=== PATIENT | female | born 1945 | race Caucasian/White ===

== ENCOUNTER 2023-06-19 19:43 | Emergency (ER) | payer MEDICARE, BC, SELFPAY ==
[2023-06-19] VITALS (14 sets, daily range): BP systolic 108–146; BP diastolic 52–88; PULSE 79–89; RESP 16–26; TEMP 37.1; O2SAT 90–98
--- NOTE | 2023-06-19 19:45 | DI.RAD.S_ITS ---
PROCEDURE: XR CHEST 1V INDICATIONS: trauma TECHNIQUE: One view of the chest was acquired. COMPARISON: [facility], CR, XR PELVIS 1-2V, 06/19/2023, 19:55. [facility], CT, CT FACIAL BONES WO CON, 06/19/2023, 19:47. [facility], CT, CT CERVICAL SPINE WO CON, 06/19/2023, 19:47. [facility], CT, CT HEAD/BRAIN WO CON, 06/19/2023, 19:47. FINDINGS: Surgical changes and devices: Right shoulder arthroplasty hardware is seen. Lungs and pleura: An incomplete inspiratory result is noted, causing a crowded appearance to the lung markings. No focal infiltrates are seen. No pneumothorax or significant pleural effusions are seen. Mediastinum: Mediastinal contours appear normal. Heart size is normal. Bones and chest wall: No suspicious bony lesions. Overlying soft tissues appear unremarkable. IMPRESSION: Low lung volumes, without a linus acute abnormality seen by plain film. If there is strong clinical concern for chest trauma in this patient, please consider a follow-up chest CT with IV contrast for further evaluation. Dictated by: Shekhar Edmondson M.D. on 06/19/2023 at 19:37 Approved by: Shekhar Edmondson M.D. on 06/19/2023 at 19:38
--- NOTE | 2023-06-19 19:45 | DI.RAD.S_ITS ---
PROCEDURE: XR PELVIS 1-2V INDICATIONS: trauma TECHNIQUE: 1 view(s) of the pelvis acquired. COMPARISON: , CR, XR CHEST 1V, 06/19/2023, 19:55. , CT, CT FACIAL BONES WO CON, 06/19/2023, 19:47. , CT, CT CERVICAL SPINE WO CON, 06/19/2023, 19:47. , CT, CT HEAD/BRAIN WO CON, 06/19/2023, 19:47. FINDINGS: Bones: No fractures or dislocations. No suspicious bony lesions. There is moderate superior joint space narrowing seen of both hips, with associated remodeling changes with subchondral sclerosis and osteophyte formation. Age-appropriate lower lumbar spine degenerative changes are noted. Soft tissues: Visualized bowel gas pattern is normal. No suspicious soft tissue calcifications. IMPRESSION: No displaced fractures can be seen on this single plain film study. If there is point tenderness (or other clinical suspicion for a fracture not seen on these images) then a dedicated CT could be considered for further evaluation, if clinically appropriate. Moderate bilateral hip degenerative change can be seen. Dictated by: Shekhar Edmondson M.D. on 06/19/2023 at 19:36 Approved by: Shekhar Edmondson M.D. on 06/19/2023 at 19:37
--- NOTE | 2023-06-19 19:45 | DI.CT.S_ITS ---
PROCEDURE: CT FACIAL BONES WO CON INDICATIONS: trauma TECHNIQUE: Noncontrast 2.5 mm thick axial images acquired from the mandible through the frontal sinuses, with coronal and sagittal reformatting. For radiation dose reduction, the following was used: automated exposure control, adjustment of mA and/or kV according to patient size. COMPARISON: [facility], CR, XR PELVIS 1-2V, 06/19/2023, 19:55. [facility], CR, XR CHEST 1V, 06/19/2023, 19:55. [facility], CT, CT CERVICAL SPINE WO CON, 06/19/2023, 19:47. [facility], CT, CT HEAD/BRAIN WO CON, 06/19/2023, 19:47. FINDINGS: Image quality: Excellent. Bones and teeth: Mildly displaced nasal bone fractures are seen. There is a left inferior orbital wall blowout fracture seen. There is herniation of fat inferiorly, with inferior deviation of the left inferior rectus muscle. The left maxillary sinus galdamez otherwise appear intact. No acute nasal septal fracture is seen. Visualized portions of the mandible demonstrate no fractures or subluxation. Zygomatic arches are intact. Pterygoid plates are intact. Visualized portions of the skull base and auditory canals are intact. Sinuses: There is blood seen within the left maxillary sinus. Soft tissues: Soft tissue swelling is seen. Several enlarged lymph nodes can be seen within the visualized neck, with the largest seen on the left at level 2A measuring 15 x 25 mm. Vascular: Visualized vascular structures appear normal in the absence of contrast. Bony vascular foramina and canals are intact. IMPRESSION: There is a left inferior orbital wall blowout fracture seen, with herniation of fat inferiorly, with inferior migration of the left inferior rectus muscle, which is highly concerning for muscular entrapment. Please correlate with eye examination. Associated blood is seen within the left maxillary sinus. Mildly displaced nasal bone fractures are seen. There is partial visualization of enlarged cervical lymph nodes. Dictated by: Shekhar Edmondson M.D. on 06/19/2023 at 19:46 Approved by: Shekhar Edmondson M.D. on 06/19/2023 at 19:49
--- NOTE | 2023-06-19 19:46 | DI.CT.S_ITS ---
PROCEDURE: CT HEAD/BRAIN WO CON INDICATIONS: Trauma TECHNIQUE: Noncontrast 4.5 mm thick angled axial sections acquired from the foramen magnum to the vertex, with coronal and sagittal reformats. For radiation dose reduction, the following was used: automated exposure control, adjustment of mA and/or kV according to patient size. COMPARISON: [facility], CR, XR PELVIS 1-2V, 06/19/2023, 19:55. [facility], CR, XR CHEST 1V, 06/19/2023, 19:55. [facility], CT, CT CERVICAL SPINE WO CON, 06/19/2023, 19:47. [facility], CT, CT FACIAL BONES WO CON, 06/19/2023, 19:47. FINDINGS: Image quality: Mild streak artifact can be seen through the skull base. CSF spaces: Basal cisterns are patent. No extra-axial fluid collections. The ventricles are symmetric in size and shape. Brain: No intracranial bleeds. A likely calcified meningioma can be seen posteriorly and on the left, as on series 2, image 16 measuring 1 cm. There is cerebral volume loss for age, with resultant ventricular and sulcal prominence. There are periventricular and deep white matter chronic small vessel ischemic changes. There is intracranial internal carotid artery atherosclerosis. Skull and face: Nasal bone fractures and left maxillary sinus fractures are partially seen. No calvarial fracture is identified. Sinuses: There is blood seen within the left maxillary sinus. No abnormal fluid is seen within the mastoid air cells. IMPRESSION: Nasal bone fractures and left maxillary sinus fractures partially seen. There is blood seen within the left maxillary sinus. No displaced calvarial fracture can be seen. No acute intracranial hemorrhage is seen. No acute intracranial process is seen. Likely calcified meningioma seen posteriorly and on the left, measuring 1 cm. Dictated by: Shekhar Edmondson M.D. on 06/19/2023 at 19:44 Approved by: Shekhar Edmondson M.D. on 06/19/2023 at 19:46
--- NOTE | 2023-06-19 19:46 | DI.CT.S_ITS ---
PROCEDURE: CT CERVICAL SPINE WO CON INDICATIONS: Trauma TECHNIQUE: Noncontrast 3 mm thick sections acquired from the skull base to the T4 level. Sagittal and coronal reformats were then constructed. For radiation dose reduction, the following was used: automated exposure control, adjustment of mA and/or kV according to patient size. COMPARISON: [facility], CR, XR PELVIS 1-2V, 06/19/2023, 19:55. [facility], CR, XR CHEST 1V, 06/19/2023, 19:55. [facility], CT, CT FACIAL BONES WO CON, 06/19/2023, 19:47. [facility], CT, CT HEAD/BRAIN WO CON, 06/19/2023, 19:47. FINDINGS: Image quality: This examination is somewhat limited by quantum mottle artifact. Bones: No fractures or dislocations. Visualized superior ribs are intact. Mild disc space narrowing is seen at the C5-C6 level. There is at least moderate disc space narrowing seen at C6-C7. Posteriorly projected endplate osteophytes are seen. Multiple levels of significant facet hypertrophy can be seen throughout the cervical spine. Soft tissues: Numerous abnormally enlarged lymph nodes can be seen within the neck. The largest is seen on the left at level 2A measuring 2.5 x 1.5 cm in greatest axial dimension. Prevertebral soft tissues are normal in thickness. No paravertebral hematomas. No apical pneumothoraces. IMPRESSION: Negative for fracture. Cervical spine degenerative changes are seen, which are worst at C6-C7. Abnormally enlarged cervical lymph nodes are seen. The appearance is highly concerning for lymphoma. Please correlate with known patient history. Note: Case discussed by telephone with Dr. Israel at 7:51 p.m. [place] time on June 19, 2023. Dictated by: Shekhar Edmondson M.D. on 06/19/2023 at 19:49 Approved by: Shekhar Edmondosn M.D. on 06/19/2023 at 19:52
--- NOTE | 2023-06-19 19:49 | ED.GENADULT ---
HPI - General Adult General Chief complaint: Fall Stated complaint: GLF, facal lac Time Seen by Provider: 06/19/23 19:45 History of Present Illness HPI narrative: 78-year-old female presents by air medical transport and is activated as a modified trauma given report of a fall from ground level with resultant head and face injuries. She had been in her normal state of health and denies any prodromal symptoms such as dizziness, weakness or lightheadedness. She was walking up a steep incline on gravel and fell forward striking her head and face and landing on her knees. She denies loss of consciousness nor nausea or vomiting. She has full recall of the event. She denies any chest pain or shortness of breath. She denies abdominal pain, nausea or vomiting. Her tetanus is current Related Data Home Medications Medication Instructions Recorded Confirmed aspirin 81 mg tablet 81 mg PO DAILY 06/20/23 06/20/23 cariprazine 3 mg capsule (Vraylar) 3 mg PO DAILY 06/20/23 06/20/23 divalproex 250 mg tablet,extended 250 mg PO DAILY 06/20/23 06/20/23 release 24 hr divalproex 500 mg tablet,extended 1,000 mg PO ONCE PM 06/20/23 06/20/23 release 24 hr levothyroxine 88 mcg tablet 88 mcg PO DAILY 06/20/23 06/20/23 propranolol 40 mg tablet 40 mg PO BID 06/20/23 06/20/23 rosuvastatin 20 mg tablet 40 mg PO ONCE PM 06/20/23 06/20/23 tirzepatide 10 mg/0.5 mL 10 mg SUBCUT 06/20/23 subcutaneous pen injector (Ricardo) tolterodine 4 mg capsule,extended 4 mg PO DAILY 06/20/23 06/20/23 release 24 hr venlafaxine 150 mg 150 mg PO DAILY 06/20/23 06/20/23 capsule,extended release 24 hr venlafaxine 75 mg capsule,extended 75 mg PO DAILY 06/20/23 06/20/23 release 24 hr Allergies Allergy/AdvReac Type Severity Reaction Status Date / Time No Known Drug Allergies Allergy Verified 06/19/23 19:46 Review of Systems Review of Systems Narrative: GENERAL: See HPI HEENT: See HPI RESPIRATORY: Denies dyspnea, cough, wheezing, hemoptysis, sputum. CARDIOVASCULAR: Denies chest pain, palpitations, orthopnea, edema, GASTROINTESTINAL: Denies nausea, vomiting, abdominal pain, diarrhea, constipation, melena. : Denies dysuria, frequency, incontinence, hematuria, urinary retention. MUSCULOSKELETAL: denies weakness, joint pain, or bony pain SKIN: Denies rash, skin lesions, or other NEUROLOGIC: Denies weakness, headache, numbness, change in speech, confusion, seizures, incoordination. PSYCHIATRIC: No concerning psychosocial issues. 12 point review of systems is negative except for those stated above Patient History Medical History Bipolar 1 disorder Depressed Diabetes High cholesterol Hypertension Hypothyroid Sleep apnea Social History Smoking Status: Unknown if ever smoked Exam Narrative Exam Narrative: GENERAL: [78] year old patient appears stated age. Well-developed patient, in mild distress. GCS 15 HEAD: Superficial abrasions of the forehead, largely above and about left eye with noted swelling of upper lid, no sign of depressed skull fracture EYES: Pupils equal round and reactive. No hyphema, patient reports binocular double vision with images [id number]. No scleral icterus. No injection or drainage. No obvious fluorescein uptake, patient very resistant to use of Oliver-Pen for intra-ocular pressures. Patient typically wears glasses but did not bring them. OS 20/50, OD 20/30, OU 20/30 ENT: 0.5 cm laceration over the bridge of the nose, minimal active bleeding, no obvious deformity, no nasal septal hematoma, dry clots bilateral nares. Throat without erythema, tonsillar hypertrophy or exudate. Airway patent. NECK: Trachea midline. Non tender CARDIOVASCULAR: Regular rate and rhythm without murmurs, gallops, or rubs. RESPIRATORY: Clear to auscultation. Breath sounds equal bilaterally. No wheezes, rales, or rhonchi. GASTROINTESTINAL: Abdomen soft, non-tender, nondistended. EXTREMITIES: No edema or joint tenderness. BACK: Nontender without deformity or crepitance. No flank tenderness. NEURO: AOx3. SKIN: No rash or erythema of visible areas Initial Vital Signs Initial Vital Signs: Vital Signs Temperature 98.8 F 06/19/23 19:18 Pulse Rate 79 06/19/23 19:18 Respiratory Rate 16 06/19/23 19:18 Blood Pressure 145/88 H 06/19/23 19:18 Pulse Oximetry 98 06/19/23 19:18 Oxygen Delivery Method Room Air 06/19/23 19:18 Procedures Laceration Repair Laceration 1: Site: face Size (cm): 0.5 Description: linear Depth: simple, single layer Local Anesthetic: lidocaine 1% Amount of anesthesia used (mL): 3 Pre-repair: wound explored and cleansed with chlorhexadine Skin layer closed with: nylon Skin layer suture size: 6-0 Number of sutures: 3 Technique: simple, interrupted Course Orders Ordered: ED Orders 06/20/23 04:07 CT chest abd pel w con Stat Sodium Chloride (Normal Saline 0.9%) 1,000 mls @ 150 mls/hr IV CONT MICHOACANO Last Admin: 06/19/23 20:43 Dose: Not Given Documented By: Dextrose ([email or web address]) 250 mls @ 999 mls/hr IV PRN PRN PRN Reason: Hypoglycemia Last Infusion: 06/19/23 21:10 Dose: 0 mls/hr Documented By: Admin: 06/19/23 20:39 Dose: 999 mls/hr Documented By: Dextrose ([email or web address]) 250 mls @ 999 mls/hr IV PRN PRN PRN Reason: Hypoglycemia Last Infusion: 06/19/23 22:54 Dose: 0 mls/hr Documented By: Admin: 06/19/23 22:28 Dose: 999 mls/hr Documented By: Discontinued Medications Diphtheria/Tetanus/Acell Pertussis (Tet,Diph,Pertuss(Acell),Vac/Pf 0.5 Ml Syringe) 0.5 ml IM .ONCE ONE Stop: 06/19/23 19:46 Last Admin: 06/19/23 19:57 Dose: Not Given Documented By: KB Fluorescein Sodium (Fluorescein 1 Mg Strip) 1 mg EYE-LEFT NOW ONE Stop: 06/19/23 22:21 Last Admin: 06/20/23 01:25 Dose: 1 mg Documented By: Hydromorphone HCl (Hydromorphone 0.5 Mg Inj) 0.5 mg IV NOW ONE Stop: 06/19/23 22:21 Last Admin: 06/19/23 22:27 Dose: 0.5 mg Documented By: Cefazolin Sodium 1 gm/ Sodium (Chloride) 100 mls @ 200 mls/hr IV NOW ONE Stop: 06/20/23 02:24 Last Infusion: 06/20/23 02:43 Dose: 0 mls/hr Documented By: Admin: 06/20/23 02:08 Dose: 200 mls/hr Documented By: LINDA Proparacaine HCl (Proparacaine 0.5% Ophth Lelia) 1 drops EYE-LEFT NOW ONE Stop: 06/19/23 22:21 Last Admin: 06/20/23 01:25 Dose: 1 drop Documented By: Consultations Consultation #1: call to Ophtho at [facility] Dr. Donald has reviewed history and physical exam findings including imaging. Not clearly in need of immediate intervention but happy to evaluate at [facility] Vital Signs Vital signs: Vital Signs - 8 hr 06/19/23 23:30 06/19/23 23:31 06/19/23 23:31 Pulse Rate 85 86 Respiratory Rate 19 18 Blood Pressure 111/52 L Pulse Oximetry 90 L 06/20/23 00:00 06/20/23 00:01 06/20/23 00:01 Pulse Rate 86 86 Respiratory Rate 21 Blood Pressure 100/57 L Pulse Oximetry 90 L 06/20/23 00:30 06/20/23 00:30 06/20/23 01:00 Pulse Rate 84 Respiratory Rate 22 Blood Pressure 105/57 L 111/59 L Pulse Oximetry 90 L 06/20/23 01:00 06/20/23 01:30 06/20/23 01:31 Pulse Rate 84 84 Respiratory Rate 17 Blood Pressure 112/57 L Pulse Oximetry 91 92 06/20/23 01:31 06/20/23 02:00 06/20/23 02:01 Pulse Rate 84 85 Respiratory Rate 14 21 Blood Pressure 126/78 Pulse Oximetry 93 93 06/20/23 02:01 06/20/23 02:30 06/20/23 02:31 Pulse Rate 85 83 Respiratory Rate 17 16 Blood Pressure 110/58 L Pulse Oximetry 93 98 06/20/23 02:31 06/20/23 03:09 06/20/23 03:11 Pulse Rate 82 85 82 Respiratory Rate 21 21 Blood Pressure Pulse Oximetry 98 98 95 06/20/23 03:11 06/20/23 03:30 06/20/23 03:31 Pulse Rate 84 83 Respiratory Rate 19 18 Blood Pressure 113/74 Pulse Oximetry 98 97 06/20/23 03:31 06/20/23 04:00 06/20/23 04:00 Pulse Rate 86 Respiratory Rate 18 Blood Pressure 125/67 114/60 Pulse Oximetry 97 06/20/23 04:30 06/20/23 04:30 06/20/23 05:04 Pulse Rate 86 86 Respiratory Rate 17 22 Blood Pressure 108/60 Pulse Oximetry 98 94 06/20/23 05:05 06/20/23 05:05 06/20/23 05:30 Pulse Rate 84 83 Respiratory Rate 18 22 Blood Pressure 113/61 Pulse Oximetry 95 91 06/20/23 06:00 06/20/23 06:00 06/20/23 06:30 Pulse Rate 82 83 Respiratory Rate 15 22 Blood Pressure 114/57 L Pulse Oximetry 92 90 L 06/20/23 07:00 06/20/23 07:00 Pulse Rate 82 Respiratory Rate 19 Blood Pressure 104/65 Pulse Oximetry 91 Medical Decision Making Lab Data 06/19/23 20:50 06/19/23 20:50 Labs: Lab Results 06/19/23 06/19/23 06/19/23 Range/Units 19:59 19:59 20:50 WBC 32.5 H* (4.5-11.0) X10^3/uL RBC 3.70 L (4.0-5.2) X10^6/uL Hgb 11.8 L (12.0-16.0) g/dL Hct 35.8 L (36-46) % MCV 96.9 (80-100) fL MCH 32.0 (26-34) PG MCHC 33.1 (30-36) % RDW 14.2 (11.6-14.8) % Plt Count 242 (150-400) X10^3/uL Neut % (Auto) Not Reportable Lymph % (Auto) Not Reportable [place] % (Auto) Not Reportable Eos % (Auto) Not Reportable Baso % (Auto) Not Reportable Lymph # (Auto) Not Reportable [place] # (Auto) Not Reportable Baso # (Auto) Not Reportable Total Counted 100 Seg Neutrophils % 26.0 L (38-70) % Lymphocytes % (Manual) 71.0 H (25-45) % Atypical Lymphs % 1.0 H ( - 0) % Monocytes % (Manual) 1.0 L (2-11) % Eosinophils % (Manual) 1.0 L (2-4) % Neutrophils # (Manual) 8450 H (0106-8003) /uL RBC Morphology Normal morphology PT (10.1-12.7) SECONDS INR (0.9-1.3) APTT (26-36) SECONDS Sodium (137-145) mmol/L Potassium (3.4-5.1) mmol/L Chloride (98-107) mmol/L Carbon Dioxide (22-32) mmol/L BUN (7-17) mg/dL Creatinine (0.52-1.04) mg/dL Estimated GFR (>60) mL/min BUN/Creatinine Ratio (6-22) Glucose (80-110) mg/dL Lactate (0.7-2.1) mmol/L Calcium (8.4-10.2) mg/dL Total Bilirubin (0.2-1.3) mg/dL AST (14-36) IU/L ALT (<35) IU/L Alkaline Phosphatase (38-126) U/L Total Creatine Kinase (30-135) U/L Troponin I (0.01-0.034) ng/mL Total Protein (6.3-8.2) g/dL Albumin (3.5-5.0) g/dL Globulin (1.7-4.1) g/dL Albumin/Globulin Ratio (1.0-2.8) Lipase (23-300) U/L Urine Color Yellow Urine Appearance Clear Urine pH 5.5 (4.5-8.0) Ur Specific [place] 1.020 (1.000-1.035) Urine Protein Negative (Negative) Urine Glucose (UA) Negative (Negative) g/dL Urine Ketones Negative (NEGATIVE) Urine Occult Blood Trace-intact (Negative) Urine Nitrate Negative (Negative) Urine Bilirubin Negative (NEGATIVE) Urine Urobilinogen 1.0 (0.2) E.U./dL Ur Leukocyte Esterase Negative (NEGATIVE) Urine RBC 0-1/hpf (0-5/HPF) Urine WBC 0-1/hpf (0-5/HPF) Ur Squamous Epith Cells 1-5 /hpf (0-5/HPF) Urine Bacteria None seen (None) Ur Culture Indicated? Cult not indicated U Opiates 300ng/mL cut Negative (Negative) Ur Oxycodone Screen Negative (Negative) Urine Methadone Screen Negative (Negative) Ur Barbiturates Screen Negative (Negative) U Tricyclic Antidepress Negative (Negative) Ur Phencyclidine Scrn Negative (Negative) Ur Amphetamines Screen Negative (Negative) U Methamphetamines Scrn Negative (Negative) Ur MDMA Scrn (Ecstasy) Negative (Negative) U Benzodiazepines Scrn Negative (Negative) Urine Cocaine Screen Negative (Negative) U Marijuana (THC) Screen Negative (Negative) Ethyl Alcohol ( - 10) mg/dL Blood Type Antibody Screen 06/19/23 06/19/23 06/19/23 Range/Units 20:50 20:50 20:50 WBC (4.5-11.0) X10^3/uL RBC (4.0-5.2) X10^6/uL Hgb (12.0-16.0) g/dL Hct (36-46) % MCV (80-100) fL MCH (26-34) PG MCHC (30-36) % RDW (11.6-14.8) % Plt Count (150-400) X10^3/uL Neut % (Auto) Lymph % (Auto) [place] % (Auto) Eos % (Auto) Baso % (Auto) Lymph # (Auto) [place] # (Auto) Baso # (Auto) Total Counted Seg Neutrophils % (38-70) % Lymphocytes % (Manual) (25-45) % Atypical Lymphs % ( - 0) % Monocytes % (Manual) (2-11) % Eosinophils % (Manual) (2-4) % Neutrophils # (Manual) (4757-6132) /uL RBC Morphology PT 11.6 (10.1-12.7) SECONDS INR 1.0 (0.9-1.3) APTT 26 (26-36) SECONDS Sodium 136 L (137-145) mmol/L Potassium 3.7 (3.4-5.1) mmol/L Chloride 103 (98-107) mmol/L Carbon Dioxide 26 (22-32) mmol/L BUN 17 (7-17) mg/dL Creatinine 0.56 (0.52-1.04) mg/dL Estimated GFR > 60 (>60) mL/min BUN/Creatinine Ratio 30.4 H (6-22) Glucose 224 H (80-110) mg/dL Lactate 1.2 (0.7-2.1) mmol/L Calcium 8.7 (8.4-10.2) mg/dL Total Bilirubin 0.7 (0.2-1.3) mg/dL AST 32 (14-36) IU/L ALT 34 (<35) IU/L Alkaline Phosphatase 83 (38-126) U/L Total Creatine Kinase 192 H (30-135) U/L Troponin I < 0.012 (0.01-0.034) ng/mL Total Protein 6.1 L (6.3-8.2) g/dL Albumin 3.6 (3.5-5.0) g/dL Globulin 2.5 (1.7-4.1) g/dL Albumin/Globulin Ratio 1.4 (1.0-2.8) Lipase 251 (23-300) U/L Urine Color Urine Appearance Urine pH (4.5-8.0) Ur Specific [place] (1.000-1.035) Urine Protein (Negative) Urine Glucose (UA) (Negative) g/dL Urine Ketones (NEGATIVE) Urine Occult Blood (Negative) Urine Nitrate (Negative) Urine Bilirubin (NEGATIVE) Urine Urobilinogen (0.2) E.U./dL Ur Leukocyte Esterase (NEGATIVE) Urine RBC (0-5/HPF) Urine WBC (0-5/HPF) Ur Squamous Epith Cells (0-5/HPF) Urine Bacteria (None) Ur Culture Indicated? U Opiates 300ng/mL cut (Negative) Ur Oxycodone Screen (Negative) Urine Methadone Screen (Negative) Ur Barbiturates Screen (Negative) U Tricyclic Antidepress (Negative) Ur Phencyclidine Scrn (Negative) Ur Amphetamines Screen (Negative) U Methamphetamines Scrn (Negative) Ur MDMA Scrn (Ecstasy) (Negative) U Benzodiazepines Scrn (Negative) Urine Cocaine Screen (Negative) U Marijuana (THC) Screen (Negative) Ethyl Alcohol < 10 ( - 10) mg/dL Blood Type Antibody Screen 06/19/23 Range/Units 21:00 WBC (4.5-11.0) X10^3/uL RBC (4.0-5.2) X10^6/uL Hgb (12.0-16.0) g/dL Hct (36-46) % MCV (80-100) fL MCH (26-34) PG MCHC (30-36) % RDW (11.6-14.8) % Plt Count (150-400) X10^3/uL Neut % (Auto) Lymph % (Auto) [place] % (Auto) Eos % (Auto) Baso % (Auto) Lymph # (Auto) [place] # (Auto) Baso # (Auto) Total Counted Seg Neutrophils % (38-70) % Lymphocytes % (Manual) (25-45) % Atypical Lymphs % ( - 0) % Monocytes % (Manual) (2-11) % Eosinophils % (Manual) (2-4) % Neutrophils # (Manual) (5808-5835) /uL RBC Morphology PT (10.1-12.7) SECONDS INR (0.9-1.3) APTT (26-36) SECONDS Sodium (137-145) mmol/L Potassium (3.4-5.1) mmol/L Chloride (98-107) mmol/L Carbon Dioxide (22-32) mmol/L BUN (7-17) mg/dL Creatinine (0.52-1.04) mg/dL Estimated GFR (>60) mL/min BUN/Creatinine Ratio (6-22) Glucose (80-110) mg/dL Lactate (0.7-2.1) mmol/L Calcium (8.4-10.2) mg/dL Total Bilirubin (0.2-1.3) mg/dL AST (14-36) IU/L ALT (<35) IU/L Alkaline Phosphatase (38-126) U/L Total Creatine Kinase (30-135) U/L Troponin I (0.01-0.034) ng/mL Total Protein (6.3-8.2) g/dL Albumin (3.5-5.0) g/dL Globulin (1.7-4.1) g/dL Albumin/Globulin Ratio (1.0-2.8) Lipase (23-300) U/L Urine Color Urine Appearance Urine pH (4.5-8.0) Ur Specific [place] (1.000-1.035) Urine Protein (Negative) Urine Glucose (UA) (Negative) g/dL Urine Ketones (NEGATIVE) Urine Occult Blood (Negative) Urine Nitrate (Negative) Urine Bilirubin (NEGATIVE) Urine Urobilinogen (0.2) E.U./dL Ur Leukocyte Esterase (NEGATIVE) Urine RBC (0-5/HPF) Urine WBC (0-5/HPF) Ur Squamous Epith Cells (0-5/HPF) Urine Bacteria (None) Ur Culture Indicated? U Opiates 300ng/mL cut (Negative) Ur Oxycodone Screen (Negative) Urine Methadone Screen (Negative) Ur Barbiturates Screen (Negative) U Tricyclic Antidepress (Negative) Ur Phencyclidine Scrn (Negative) Ur Amphetamines Screen (Negative) U Methamphetamines Scrn (Negative) Ur MDMA Scrn (Ecstasy) (Negative) U Benzodiazepines Scrn (Negative) Urine Cocaine Screen (Negative) U Marijuana (THC) Screen (Negative) Ethyl Alcohol ( - 10) mg/dL Blood Type A Positive Antibody Screen Negative Point of Care Testing Glucose POC 93 Urine Dip Bedside Urine Glucose Negative Bedside Urine Bilirubin - Negative Bedside Urine Ketone - Negative Urine Specific [place] 1.015 Bedside Urine Occult Blood +/- Bedside Urine pH 6 Bedside Urine Protein - Negative Bedside Urine Urobilinogen - Negative Bedside Urine Nitrite - Negative Bedside Urine Leukocytes - Negative Esterase Point of care testing: Point of Care Testing Glucose POC 93 Urine Dip Bedside Urine Glucose Negative Bedside Urine Bilirubin - Negative Bedside Urine Ketone - Negative Urine Specific [place] 1.015 Bedside Urine Occult Blood +/- Bedside Urine pH 6 Bedside Urine Protein - Negative Bedside Urine Urobilinogen - Negative Bedside Urine Nitrite - Negative Bedside Urine Leukocytes - Negative Esterase MDM Narrative Medical decision making narrative: CC: 78-year-old female with ground level fall and injuries suffered as a consequence mainly left side of face, reports double vision [id number] Complicating co-morbidities: Age, history of CLL, hyperlipidemia, Data collected from: Patient Medical records reviewed: Prior notes reviewed in our EMR Differential considered, but not limited to: Intracranial hemorrhage versus facial fractures versus cervical fracture versus other Exam documented above, pertinent findings include: GCS 15, no focal neuro findings, noted swelling around left side of face and eye, no obvious deficit in extraocular muscles, no fluorescein uptake, she does have decreased vision in her left eye but states she had an injury about 20 years ago and usually sees little bit less out of this left eye Lab Test results independently reviewed as above. Pertinent findings: White count over 30,000, this is at her baseline for CLL, Independently reviewed EKG as above Imaging studies independently reviewed: Head CT notes no intracranial hemorrhage. Nasal bone fractures and left maxillary sinus fracture partially seen. CT of C-spine without fracture or dislocation. Left inferior orbital wall blowout fracture with herniation of fat and inferior migration of left inferior rectus muscle, concerning for muscular entrapment. Displaced nasal bone fractures and left maxillary sinus fracture. Consultations:discussed with Dr. Donald ([facility] Ophtho). Happy to see patient in transfer, not obviously a surgical candidate Treatments: Saline, Tetanus, Dilaudid, proparacaine, fluorescein, cefazolin, D10 Re-evaluations: While discussing possibility of transfer to [facility] patient states that she is beginning to have significant left-sided abdominal pain that was not present earlier. Trauma CTs ordered. These images have returned without significant findings, but does suggest mild diverticulitis. Discussion: 78-year-old female presents by air medical transport for evaluation of injury suffered as a consequence of a ground level fall. Most notably a left-sided orbital blowout fracture with resultant possible entrapment of extraocular muscle and decreased vision along with double vision. Imaging of chest abdomen and pelvis is largely absence of any traumatic findings but there is the mention of a mild diverticulitis free of perforation or abscess. Tetanus is updated patient is given Ancef. Patient understands and agrees with the diagnosis and plan Critical Care Time Critical Care Time Critical Care Time: Yes Total Critical Care Time: 35 Attestation: The high probability of a clinically significant, sudden or life threatening deterioration of the [[employer]NEY[employer]LYST/CV] system(s) required my full and direct attention, intervention and personal management. The aggregate critical care time was [30] minutes. This time is in addition to time spent performing reported procedures but includes the following: [x] Data Review and interpretation x[] Patient assessment and monitoring of vital signs [x] Documentation [x] Medication orders and management Discharge Plan Departure Patient Disposition: [facility] Clinical Impression: Blow-out fracture of orbital floor, Binocular vision disorder with diplopia, Change in vision, Abrasion of face, Facial laceration, Fracture of nasal bone, Diverticulitis Prescriptions: No Action divalproex 250 mg tablet extended release 24 hr 250 mg PO DAILY Patient Comments: evening divalproex 500 mg tablet extended release 24 hr 1,000 mg PO ONCE PM Patient Comments: evening Vraylar 3 mg capsule 3 mg PO DAILY Patient Comments: nightly Adult Low Dose Aspirin 81 mg Tablet 81 mg PO DAILY Patient Comments: nightly propranolol 40 mg tablet 40 mg PO BID rosuvastatin 20 mg tablet 40 mg PO ONCE PM Patient Comments: nightly venlafaxine 150 mg capsule,extended release 24hr 150 mg PO DAILY venlafaxine 75 mg capsule,extended release 24hr 75 mg PO DAILY levothyroxine 88 mcg tablet 88 mcg PO DAILY tolterodine 4 mg capsule,extended release 24hr 4 mg PO DAILY Mounjaro 10 mg/0.5 mL pen injector 10 mg SUBCUT Patient Comments: Every thursday
[2023-06-19 20:12] LABS: UR Morphine/Opiate cutoff 300 Negative (Negative); Ur Creatinine Normal (Normal); Ur Specific Gravity Normal (Normal); Urine Amphetamines Negative (Negative); Urine Barbiturates Negative (Negative); Urine Benzodiazepines Negative (Negative); Urine Cocaine Negative (Negative); Urine MDMA Negative (Negative); Urine Methadone Negative (Negative); Urine Methamphetamines Negative (Negative); Urine Oxycodone Negative (Negative); Urine Phencyclidine Negative (Negative); Urine Tetrahydrocannabinol Negative (Negative); Urine Tricyclic Antidepressant Negative (Negative); Urine pH Normal (Normal)
[2023-06-19 20:28] LABS: Appearance Urine UA CLEAR; Bilirubin Urine UA NEGATIVE (NEGATIVE); Color Urine UA YELLOW; Glucose Urine UA NEGATIVE (Negative); Ketones Urine UA NEGATIVE (NEGATIVE); Leukocyte Esterase Urine UA NEGATIVE (NEGATIVE); Nitrite Urine UA NEGATIVE (Negative); Occult Blood Urine UA TRACE-INTACT (Negative); Protein Urine UA NEGATIVE (Negative)
[2023-06-19 20:29] LABS: pH Urine UA 5.5 (4.5-8.0)
[2023-06-19 20:33] LABS: RBC Urine 0-1/HPF (0-5/HPF); WBC Urine 0-1/HPF (0-5/HPF)
[2023-06-19 20:34] LABS: Bacteria Urine None Seen; Culture Indicated Urine Cult Not Indicated; Squamous Epithelial Cell Urine 1-5 /HPF (0-5/HPF)
[2023-06-19] MEDS: DEXTROSE 10 % IN WATER 250 ML 999 ML IV ×2 (20:39→22:28)
[2023-06-19 21:17] LABS: Hematocrit 35.8 % (36-46); Hemoglobin 11.8 g/dL (12.0-16.0); Mean Corpuscular HGB Conc 33.1 % (30-36); Mean Corpuscular Volume 96.9 fL (80-100); Platelet Count 242 X10^3/uL (150-400); Red Cell Distribution Width 14.2 % (11.6-14.8)
[2023-06-19 21:18] LABS: Add Manual Diff / Slide Review YES
[2023-06-19 21:19] LABS: White Blood Cell Count 32.5 X10^3/uL (4.5-11.0)
[2023-06-19 21:25] LABS: Prothrombin Time 11.6 SECONDS (10.1-12.7)
[2023-06-19 21:28] LABS: PTT Partial Thromboplastin Tim 26 SECONDS (26-36)
[2023-06-19 21:29] LABS: Lactate (Lactic Acid) 1.2 mmol/L (0.7-2.1)
[2023-06-19 21:31] LABS: Alanine Aminotransferase 34 IU/L (<35); Albumin 3.6 g/dL (3.5-5.0); Albumin Globulin Ratio 1.4 (1.0-2.8); Alkaline Phosphatase 83 U/L (38-126); Aspartate Aminotransferase 32 IU/L (14-36); BUN Creatinine Ratio 30.4 (6-22); Bilirubin Total 0.7 mg/dL (0.2-1.3); Blood Urea Nitrogen 17 mg/dL (7-17); Calcium 8.7 mg/dL (8.4-10.2); Carbon Dioxide 26 mmol/L (22-32); Chloride 103 mmol/L (98-107); Creatine Kinase 192 U/L (30-135); Estimated Glomerular Filt Rate > 60 mL/min (>60); Ethanol (ETOH) < 10 mg/dL; Globulin 2.5 g/dL (1.7-4.1); Glucose 224 mg/dL (80-110); HEMOLYSIS < 15 (0-50); Lipase 251 U/L (23-300); Potassium 3.7 mmol/L (3.4-5.1); Sodium 136 mmol/L (137-145); Total Protein 6.1 g/dL (6.3-8.2)
[2023-06-19 21:38] LABS: Neutrophils Absolute Manual 8450 /uL (3000-5900); Total Cells Counted 100
[2023-06-19 21:39] LABS: RBC Morphology Normal Morphology
[2023-06-19 21:42] LABS: Troponin I < 0.012 ng/mL (0.01-0.034)
[2023-06-19] MEDS: HYDROMORPHONE 0.5 MG INJ IV (22:27)
[2023-06-20] VITALS (23 sets, daily range): BP systolic 100–126; BP diastolic 57–78; PULSE 82–86; RESP 14–24; O2SAT 89–98
[2023-06-20] MEDS: FLUORESCEIN 1 MG STRIP EYE-LEFT (01:25)
[2023-06-20] MEDS: PROPARACAINE 0.5% OPHTH SOL 1 DROPS EYE-LEFT (01:25)
[2023-06-20] MEDS: CEFAZOLIN VIAL 1 GM in SODIUM CHLORIDE 0.9% 100 ML IV (02:08)
--- NOTE | 2023-06-20 04:07 | DI.CT.S_ITS ---
PROCEDURE: CT CHEST ABD PEL W CON INDICATIONS: Trauma. TECHNIQUE: After the administration of oral and intravenous contrast, axial sections acquired from the supraclavicular neck to the pubic symphysis. Coronal and sagittal reformats were performed. For radiation dose reduction, the following was used: automated exposure control, adjustment of mA and/or kV according to patient size. COMPARISON: [facility], CR, XR PELVIS 1-2V, 06/19/2023, 19:55. [facility], CT, CT FACIAL BONES WO CON, 06/19/2023, 19:47. [facility], CT, CT CERVICAL SPINE WO CON, 06/19/2023, 19:47. [facility], CT, CT HEAD/BRAIN WO CON, 06/19/2023, 19:47. [facility], CR, XR CHEST 1V, 06/19/2023, 19:55. FINDINGS: Image quality: Excellent. CHEST: Lower Neck: No enlarged lymph nodes. Thyroid: Within normal limits. Axillae: There are mildly enlarged supraclavicular and axillary enlarged lymph nodes bilaterally, left greater than right. Chest Wall: Unremarkable. Lungs and Airways: Mild subpleural ground-glass and nodular infiltrates. Bilateral subpleural septal thickening. Pleura: No pneumothorax or pleural effusions. Heart: Heart size is normal. No pericardial effusion. Thoracic Vessels: The aorta and pulmonary arteries demonstrate normal size. Mediastinum and Tammy: No enlarged lymph nodes. Esophagus: No wall thickening. Small hiatal hernia. ABDOMEN: Liver: Mild hepatomegaly and hepatic steatosis. Gallbladder: There is a calcified gallstone. Biliary ducts: Unremarkable. Pancreas: Unremarkable. Spleen: At upper limit of normal in size. There are couple of splenules. Adrenal Glands: Unremarkable. Kidneys and Ureters: Unremarkable. Stomach and Bowel: Stomach, small bowel loops, and colon are normal in caliber. Colonic diverticulosis. There is mild stranding in the distal descending colon/proximal sigmoid colon consistent with acute diverticulitis. Peritoneum: No abnormal intraperitoneal fluid. No free air. Ventral Wall: No hernia. Abdominal Nodes: Borderline enlarged retroperitoneal lymph nodes. There are multiple enlarged common and external iliac lymph nodes bilaterally. Borderline enlarged inguinal lymph nodes are seen bilaterally. Vessels: Aorta and inferior vena cava are normal in size. PELVIS: Pelvic Organs: Unremarkable. Bladder: Unremarkable. Pelvic Nodes: No enlarged lymph nodes. Miscellaneous: No inguinal hernias are seen. Bones: Right shoulder arthroplasty. Degenerative changes in thoracic and lumbar spine. IMPRESSION: 1. No acute traumatic injuries identified in thorax, abdomen or pelvis. 2. Colonic diverticulosis. There is focal stranding in the distal descending/proximal sigmoid colon consistent with mild acute diverticulitis. 3. Mild hepatomegaly and hepatic steatosis. 4. Cervical, retroperitoneal, iliac inguinal lymphadenopathy. Differential diagnoses include lymphoma and metastases. 5. Bilateral subpleural nodular and ground-glass infiltrates consistent with pneumonia or pneumonitis. 6. Cholelithiasis. No significant discrepancy with the night clerk radiology preliminary report. Dictated by: Hima Webster M.D. on 06/20/2023 at 7:59 Approved by: Hima Webster M.D. on 06/20/2023 at 8:10
== END 2023-06-20 08:10 | disposition short-term general hospital (02) ==
PROVIDERS: Emergency Provider Emergency Medicine
DX: S02.30XA Fracture of orbital floor, unspecified side, initial encounter for closed fracture (principal); H53.2 Diplopia; H53.9 Unspecified visual disturbance; S01.81XA Laceration without foreign body of other part of head, initial encounter; S02.2XXA Fracture of nasal bones, initial encounter for closed fracture; K57.92 Diverticulitis of intestine, part unspecified, without perforation or abscess without bleeding; W18.30XA Fall on same level, unspecified, initial encounter; R03.1 Nonspecific low blood-pressure reading
CPT/HCPCS: 36415; 70450; 70486; 71045; 71260; 72125; 72170; 74177; 80053; 80305; 80320; 81001; 81003; 82550; 82962; 83605; 83690; 84484; 85007; 85025; 85610; 85730; 86850; 86900; 86901; 93005; 93010; 96365; 96375; 99284; J0690; J1170; Q9967